=== PATIENT | male | born 1940 | race Caucasian/White ===

== ENCOUNTER 2016-06-10 11:48 | Emergency (ER) | payer MEDICARE, BC ==
[2016-06-10] MEDS ORDERED: IOPAMIDOL 300 (61%) 100 ML VIAL IV ONE (11:49)
[2016-06-10 12:26] LABS: ABSOLUTE NEUTROPHIL COUNT 8.4 K/mm3 (1.8-7.7); BASO % 0.2 % (0.2-1.0); EOS % 0.1 % (0.9-2.9); HEMATOCRIT 29.3 % (32.0-52.0); HEMOGLOBIN 8.7 gm/l (14.0-18.0); IMM NEUT # 0.1 K/mm3 (0-0.2); IMM NEUT% 0.5 % (0-1); LYMPH # 0.5 (1.0-4.8); LYMPH % 5.1 % (15-45); MEAN CELL VOLUME 76.7 fl (80.0-94.0); MEAN CORPUSCULAR HEMOGLOBIN 22.8 pg (27.0-31.0); MEAN CORPUSCULAR HGB CONC 29.7 g/dl (33.0-37.0); MONO # 0.8 (0.0-0.8); MONO % 8.4 % (4-12); NEUT % 85.7 % (43-75); PLATELET COUNT 363 K/mm3 (130-400); RED CELL DISTRIBUTION WIDTH 16.9 % (11.5-14.5)
[2016-06-10 12:37] LABS: ALB/GLOB RATIO 1.3 (>1.0); ALBUMIN 3.6 gm/dL (3.5-5.7); CALCIUM 8.7 mg/dL (8.6-10.3)
[2016-06-10 12:38] LABS: URINE BILIRUBIN NEGATIVE (NEGATIVE); URINE BLOOD NEGATIVE (NEGATIVE); URINE GLUCOSE (UA) 3+ (NEGATIVE); URINE LEUKOCYTE ESTERASE NEGATIVE (NEGATIVE); URINE NITRITE NEGATIVE (NEGATIVE); URINE PROTEIN NEGATIVE (NEGATIVE); URINE UROBILINOGEN NORMAL (0-1 mg/dl)
[2016-06-10 12:40] LABS: URINE APPEARANCE CLEAR; URINE COLOR YELLOW
--- NOTE | 2016-06-10 13:49 | CT ---
CT ABDOMEN AND PELVIS WITH CONTRAST HISTORY: Right lower quadrant pain and groin pain. TECHNIQUE: Following intravenous administration of 100 mL of Isovue-300, contiguous axial images were acquired from the lung bases to the ischial tuberosities. Oral contrast was not administered. COMPARISON:None. FINDINGS: LUNG BASES: No gross airspace consolidation. Minor bronchial wall thickening. STOMACH: Moderate hiatal hernia. LIVER: No focal lesion. SPLEEN: No focal lesion. PANCREAS: No focal lesion. ADRENAL GLANDS: No mass effect. KIDNEYS: 3.2 cm right renal cyst. No collecting system dilatation. GALLBLADDER: Present. BOWEL: Moderately extensive fecal loading with partial decompression of the colon limiting evaluation. Proximal sigmoid colonic diverticulosis without diverticulitis. No gross small bowel dilatation minor wall thickening of the descending colon. APPENDIX: Not seen. PELVIC ORGANS: Evidence of penile implant placement. INGUINAL REGIONS: Abnormal soft tissue stranding at right-sided inguinal region with soft tissue attenuation focus measuring 6.1 x 4.6 cm in axial dimensions with adjacent small calcification, seen in association with right-sided adductor musculature. A small calcification is noted. FREE FLUID: No gross free fluid identified. ANTERIOR ABDOMINAL WALL: Prominent fatty hernia without edema or bowel content. ABDOMINOPELVIC LYMPH NODES: Pelvic lymph nodes including 3.3 cm left external iliac node and a 2.6 cm right external iliac node. ABDOMINAL AORTA: Normal caliber. OSSEOUS STRUCTURES: Evidence of prior left hip arthroplasty. Nonacute compression deformity of L1 with osseous bridging of the lower thoracic spine and across the L2-3 segment. Osseous bridging across the right sacroiliac joint. Findings of lumbar spondylosis with canal stenosis at the L4-5 level. IMPRESSION: 1. 6.1 x 4.6 in meters soft tissue attenuation focus in association with right-sided abductor musculature, intramuscular hematoma and mass lesion are possible. Adjacent soft tissue stranding may reflect changes of ecchymosis, edema, or cellulitis. A rim-enhancing fluid collection is not seen in this region. Presumed minor reactive pelvic adenopathy. 2. Prominent fatty umbilical hernia without bowel content or features of incarceration. 3. Minor wall thickening of the proximal colon which may be exaggerated by decompression, mild colitic change is possible. The appendix is not seen. 4. Status post penile pump placement and left-sided hip arthroplasty. 5. Findings of thoracolumbar spine spondylosis with multilevel osseous bridging. High-grade canal stenosis at L4-5. 6. Additional findings including 3.2 cm right renal cyst, moderate hiatal hernia, and lower lobe bronchial wall thickening. Findings discussed with Dr. Dent of the Emergency Medicine clinical service on 06/02/2016 at 1346 hours.
[2016-06-10] MEDS ORDERED: INSULIN REGULAR HUMAN (DOSE) 100 UNITS/1 ML ONE ×3 (17:32→19:48)
[2016-06-10 18:01] LABS: INR 3.05; PROTHROMBIN TIME 33.9 SECONDS (9.3-11.4)
== END 2016-06-10 21:13 | disposition home or self-care (01) ==
LOC: ED 11:48
DX: E11.65 Type 2 diabetes mellitus with hyperglycemia (principal); S30.1XXA Contusion of abdominal wall, initial encounter; I10 Essential (primary) hypertension; E66.9 Obesity, unspecified; G47.30 Sleep apnea, unspecified; I48.91 Unspecified atrial fibrillation; I25.10 Atherosclerotic heart disease of native coronary artery without angina pectoris; Z85.038 Personal history of other malignant neoplasm of large intestine; Z79.84 Long term (current) use of oral hypoglycemic drugs; Z79.4 Long term (current) use of insulin; Z79.899 Other long term (current) drug therapy; X58.XXXA Exposure to other specified factors, initial encounter
CPT/HCPCS: 85025; 80053; 85610; 81003; 74177; 97001; 99284 ×2; 96372 ×2; 82962 ×2; Q9967; J1815 ×3; G8978; G8979; G8980

== ENCOUNTER 2016-06-12 12:38 | Observation (INO) | payer MEDICARE, BC ==
[2016-06-12 13:46] LABS: ABSOLUTE NEUTROPHIL COUNT 8.4 K/mm3 (1.8-7.7); BASO % 0.2 % (0.2-1.0); EOS % 0.3 % (0.9-2.9); HEMATOCRIT 26.4 % (32.0-52.0); HEMOGLOBIN 7.9 gm/l (14.0-18.0); IMM NEUT # 0.1 K/mm3 (0-0.2); IMM NEUT% 0.6 % (0-1); LYMPH # 0.6 (1.0-4.8); LYMPH % 6.2 % (15-45); MEAN CELL VOLUME 76.1 fl (80.0-94.0); MEAN CORPUSCULAR HEMOGLOBIN 22.8 pg (27.0-31.0); MEAN CORPUSCULAR HGB CONC 29.9 g/dl (33.0-37.0); MEAN PLATELET VOLUME 9.6 fl (7.4-10.4); MONO # 0.6 (0.0-0.8); MONO % 6.3 % (4-12); NEUT % 86.4 % (43-75); PLATELET COUNT 364 K/mm3 (130-400); RED CELL DISTRIBUTION WIDTH 17.1 % (11.5-14.5)
[2016-06-12 14:00] LABS: INR 2.87; PROTHROMBIN TIME 31.8 SECONDS (9.3-11.4)
[2016-06-12] MEDS ORDERED: MAGNESIUM HYDROXIDE 30 ML UDCUP PO PRN (16:24)
[2016-06-12] MEDS ORDERED: BISACODYL 5 MG TABLET.EC PO PRN (16:24)
[2016-06-12] MEDS ORDERED: BISACODYL 10 MG SUP PR PRN (16:24)
[2016-06-12] MEDS ORDERED: SODIUM CHLORIDE 0.9% 100 ML IV PRN (16:24)
[2016-06-12] MEDS ORDERED: MENTHOL/CETYLPYRD 1 EACH LOZENGE PO PRN (16:24)
[2016-06-12] MEDS ORDERED: BLISTEX LIPSTICK 1 EACH TP PRN (16:24)
[2016-06-12] MEDS ORDERED: ACETAMINOPHEN 325 MG TABLET PO PRN (16:24)
[2016-06-12 17:05] VITALS: BMI 48.3
[2016-06-12] MEDS: INSULIN ASPART (DOSE) 100 UNITS/1 ML SUB-Q PRN ×2 (18:22→21:33)
[2016-06-12] MEDS ORDERED: WARFARIN SODIUM 5 MG TABLET PO SCH ×3 (18:30→19:15)
--- NOTE | 2016-06-12 19:41 | HP ---
FRANCA GOLD [id number] DATE OF ADMISSION: June 12, 2016 CHIEF COMPLAINT: Right inguinal pain. HISTORY OF PRESENT ILLNESS: The patient is a 75-year-old male who was brought to the [facility] Emergency Department because of worsening right medial leg pain and increased weakness. Patient initially was seen on June 10, 2016 for hyperglycemia. At that time he was noted to have some swelling and ecchymosis involving the right thigh. He had further evaluation including a CT of the abdomen and pelvis showing evidence of 6 x 5 cm soft tissue attenuation in the right sided abductor musculature consistent with an intramuscular hematoma. His hemoglobin at that time was 8.7. He was discharged home after control of his blood sugars was accomplished, but his has continued to struggle with managing his care at home. He requires one person assistance for all activities of daily living, and at times two person assistance, and she has back problems and has plans to undergo surgery in the near future and cannot handle his care needs. Arrangements had been made for him to intermediate care facility, but then they changed their mind and returned today with the goal of going back to intermediate care facility but a bed was not available until tomorrow. So they were referred to the hospitalist service for observation due to patient's generalized weakness and right groin pain. The patient's is frustrated and exasperated. She notes that he has had a gradual decline in the last several months. He has had recent fluctuations in his blood sugars. They were seen at [facility] for low blood sugar. He got lots of glucose to finally bring it back up and then the following day he had high blood sugar and was brought here. He has had worsening memory in the last three months to six months and even forgot to pay his bills. He has had problems with managing his medications, and she has recently assumed that as well as taking care of the bills. She is hoping to refit the house to make it handicap accessible and adjust it to allow him to stay at home, but it is unclear when they will be able to achieve that. They have hired contractors. She is assuming more direct care of the patient but feel she can no longer manage his needs and is hoping that he will improve with a stay in a nursing facility. REVIEW OF SYSTEMS: Is negative for any recent fevers or chills. He has had no upper respiratory symptoms, no cough, chest pain, shortness of breath. He has chronic dyspnea on exertion. He has chronic snoring and chronic orthopnea. He has had no change in lower extremity edema. He has had no abdominal pain, no nausea, vomiting, diarrhea, or constipation. No headaches, fainting, blackouts or seizures. He has had some polyuria with his hyperglycemia but currently this is improved. He has nocturia about three or four times a night. PAST MEDICAL HISTORY: Is significant for: 1. Adult onset diabetes on insulin for the past 30 years. 2. He has chronic essential hypertension. 3. He has a history of obstructive sleep apnea and was on CPAP therapy until a year and a half ago when he stopped using the machine, and he has refused to go in for a sleep study but now is starting to reevaluate his decision. 4. He has morbid obesity. 5. He has benign prostatic hypertrophy. 6. He has a history of gastroesophageal reflux disease with an esophageal stricture in the past. 7. He has had some chronic depression. 8. He has had some vitamin D deficiency. 9. He has chronic atrial fibrillation. 10. He was hospitalized last in August of 2014 for acute renal failure, respiratory failure and uncontrolled diabetes. He may have been on a ventilator for a while. PAST SURGICAL HISTORY: Significant for: 1. A left hip replacement in 2009. 2. Bilateral inguinal hernia repair in 1984. 3. Colonoscopy in 2009. 4. Tonsillectomy as a child. 5. Penile implant surgery, date unknown. ALLERGIES: NO KNOWN DRUG ALLERGIES. CURRENT MEDICATIONS: 1. Lantus insulin 45 units subcutaneous daily. 2. NovoLog insulin 3 units subcutaneous three times a day with meals. She also uses a correction scale of anywhere from 0 to 12 units three times a day with meals plus some bedtime insulin as needed. 3. He takes Coumadin 7.5 mg Sunday, Sunday, Sunday, Sunday, and Sunday and 5 mg orally on Sunday only. 4. Flomax 0.4 mg daily. 5. Paxil 20 mg daily. 6. Nexium 40 mg daily. 7. Metformin 1000 mg twice a day with meals. 8. Losartan 100 mg daily. 9. Proscar 5 mg daily. 10. Norvasc 5 mg daily. FAMILY HISTORY: Positive for diabetes in the family. SOCIAL HISTORY: He is in his second marriage. He has two biological children but they are not local. His current has a daughter from her previous marriage who is active and supportive. He is currently living with his . He used to drink regularly but is no longer drinking alcohol. Denies any history of tobacco use or illicit drug use. His primary care provider is Dorothy Heck nurse practitioner. There is no POLST form on file. PHYSICAL EXAMINATION: VITAL SIGNS: Temperature is 97.7, pulse 75, blood pressure 149/68, respirations 20, oxygen saturation 96% on room air. Body mass index is 48.4. Weight is 152.86 kilograms. GENERAL: This is an obese elderly male in no acute distress. HEENT: Shows pupils equal, round and reactive to light. Extraocular movements are intact. No oral lesions are present. NECK: Is supple without lymphadenopathy or thyromegaly. CHEST: Lungs are clear to auscultation bilaterally. CARDIOVASCULAR: Exam reveals an irregular rhythm, normal rate without a murmur. ABDOMEN: Is obese, soft, nontender, nondistended with positive bowel sounds. EXTREMITIES: Show some bruising and ecchymoses involving the right thigh especially over the medial aspect of the thigh. He has some tenderness up into the adductor canal. No definite mass is palpable. Dorsalis pedis pulses are 2+ in the feet bilaterally. No joint effusions and full range of motion at the hips and the knees. LABORATORY STUDIES: Included a CBC with a white count of 9.7, hemoglobin of 7.9, platelet count of 364,000. INR was 2.87, glucose was 282. His last chemistry profile was done on June 10, 2016 and this showed a sodium 128, potassium 4.8, BUN 10, creatinine 1.1, and normal liver function tests. ASSESSMENT: 1. Patient has a right groin strain with a right groin hematoma associated with anticoagulation therapy on Coumadin. 2. He has a history of adult onset diabetes with poor control. 3. He has morbid obesity which complicates his care. 4. He has a history of obstructive sleep apnea noncompliant with CPAP therapy. 5. He has a history of chronic microcytic anemia likely due to iron deficiency on top of acute blood loss anemia. 6. He has atrial fibrillation on chronic anticoagulant therapy on Coumadin. 7. He has some chronic gastroesophageal reflux disease which is stable. 8. He has chronic essential hypertension which is stable. PLAN: He meets criteria for observation and will be placed under observation. Family would like to pursue group home care. At this point he does not meet criteria for admission and will only meet criteria for Medicare's coverage for group home care. Family understands and will likely pursue intermediate care facility level of care. He is going to move to [facility] tomorrow. We will work to reduce his Coumadin dose slightly to achieve a lower INR and hopefully reduce his risk of further bleeding. We will check a hemoglobin in the morning to make sure that his blood counts are stable. I am going to start him on iron supplementation as well. cc: Rob Valdivia
[2016-06-12] MEDS: DOCUSATE SODIUM 100 MG CAPSULE PO SCH (21:09)
[2016-06-12] MEDS: FERROUS SULFATE (65 Fe) 325 MG TABLET PO SCH (21:09)
[2016-06-13 06:06] LABS: HEMATOCRIT 26.4 % (32.0-52.0); HEMOGLOBIN 7.4 gm/l (14.0-18.0)
[2016-06-13 06:09] LABS: INR 3.01; PROTHROMBIN TIME 33.5 SECONDS (9.3-11.4)
[2016-06-13 06:20] LABS: CALCIUM 8.6 mg/dL (8.6-10.3)
[2016-06-13] MEDS ORDERED: METFORMIN HCL 1,000 MG TABLET PO SCH (07:00)
[2016-06-13] MEDS: INSULIN ASPART (DOSE) 100 UNITS/1 ML SUB-Q PRN ×2 (08:07→13:27)
[2016-06-13] MEDS: INSULIN ASPART (DOSE) 100 UNITS/1 ML SUB-Q SCH ×2 (08:07→13:26)
[2016-06-13] MEDS ORDERED: FINASTERIDE 5 MG TABLET PO SCH (09:00)
[2016-06-13] MEDS ORDERED: PAROXETINE 20 MG TABLET PO SCH (09:00)
[2016-06-13] MEDS ORDERED: PANTOPRAZOLE 40 MG TABLET DR PO SCH (09:00)
[2016-06-13] MEDS ORDERED: LOSARTAN POTASSIUM 50 MG TABLET PO SCH (09:00)
[2016-06-13] MEDS ORDERED: INSULIN GLARGINE (DOSE) 100 UNITS/ML UNIT SUB-Q SCH (09:00)
[2016-06-13] MEDS ORDERED: AMLODIPINE BESYLATE 5 MG TABLET PO SCH (09:00)
[2016-06-13] MEDS ORDERED: TAMSULOSIN HCL 0.4 MG CAPSULE.DR PO SCH (09:00)
[2016-06-13] MEDS: DOCUSATE SODIUM 100 MG CAPSULE PO SCH (09:54)
[2016-06-13] MEDS: FERROUS SULFATE (65 Fe) 325 MG TABLET PO SCH (09:54)
--- NOTE | 2016-06-13 10:56 | PDOC43 ---
- Subjective Chief Complaint: weakness, right leg pain Subjective: Reports Pain Tolerable, Reports Tolerating Diet Well, Denies Fever - Objective Vital Signs Temperature 98.6 F 06/13/16 08:00 Pulse Rate 80 06/13/16 08:00 Respiratory Rate 16 06/13/16 08:00 Blood Pressure 150/83 06/13/16 08:00 O2 Saturation by Pulse Oximetry 97 06/13/16 08:00 Oxygen Delivery Method Room Air Oxygen Flow Rate 0 Intake and Output 06/12/16 06/13/16 06/14/16 06:59 06:59 06:59 Intake Total 746 Output Total 300 Balance 446 General: Alert, Cooperative, No Acute Distress HEENT: Mucous membr. moist/pink Lungs: Clear to Auscultation Bilaterally Cardiovascular: Regular Rate and Rhythm Abdomen: Soft, Normal Bowel Sounds, Non-Distended, No Tenderness Extremities: Other (right thigh bruising and ecchymoses are stable), No Edema Laboratory 06/13/16 05:15 06/13/16 05:15 06/13/16 06/13/16 06/12/16 07:56 05:15 21:12 PT 33.5 H POC Capillary Glucose 195 H 292 H 06/12/16 15:57 PT POC Capillary Glucose 282 H Current Medications: Current meds reviewed in EMR. - Problems: Assessment/Plan (1) Hematoma Status: Acute Assessment/Plan: of right thigh, subacute, likely due to muscle tear while anticoagulated, appears stable (2) Acute blood loss anemia Status: Acute Assessment/Plan: due to hematoma and chronic iron def-start iron and follow (3) Diabetes Qualifiers: Diabetes mellitus type: type 2 Diabetes mellitus complication status: without complication Diabetes mellitus long term acute care registered nurse insulin use: with long term acute care registered nurse use Qualifier Code: (E11.9) Type 2 diabetes mellitus without complications Status: Acute Assessment/Plan: cont current Rx (4) Morbid obesity Qualifiers: Obesity type: with alveolar hypoventilation Qualifier Code: (E66.2) Morbid (severe) obesity with alveolar hypoventilation Status: Acute Assessment/Plan: requested sleep study referral from PCP [facility] Prophylaxis: on Coumadin Disposition: to [facility] today
[2016-06-13] MEDS ORDERED: IRON SUCROSE COMPLEX IV ONE (12:00)
[2016-06-13] MEDS ORDERED: SODIUM CHLORIDE 0.9% IV ONE (12:00)
[2016-06-13] MEDS ORDERED: PUMP TUBING ONE (12:37)
[2016-06-13 13:16] VITALS: BP 130/82
--- NOTE | 2016-06-13 13:19 | CT ---
Exam: CT head without contrast COMPARISON: None INDICATION: Fall with head trauma, INR 3.0. TECHNIQUE: CT examination of the head was obtained without contrast. FINDINGS: There is no acute intracranial hemorrhage. There is no abnormal intra or extra-axial fluid collection. Cortical ruiz-white matter differentiation is maintained and there is no mass effect or midline shift. Ventricles are normal in size. There are moderate periventricular and deep white matter hypodensities, compatible with chronic small vessel ischemic changes. There is mild to moderate global atrophy. There is no depressed skull fracture. Visualized paranasal sinuses and mastoid air cells are well aerated. IMPRESSION: No acute intracranial abnormality. Report called to Dr. Tapia 1315 hours 06/13/2016.
[2016-06-13] MEDS ORDERED: WARFARIN SODIUM 5 MG TABLET PO SCH (16:00)
== END 2016-06-13 15:00 ==
LOC: ED 12:38 → MS 14:49
PROVIDERS: ADMIT Family Medicine; ATTEND Family Medicine
DX: S70.11XA Contusion of right thigh, initial encounter (principal); E11.9 Type 2 diabetes mellitus without complications; I10 Essential (primary) hypertension; G47.33 Obstructive sleep apnea (adult) (pediatric); E66.01 Morbid (severe) obesity due to excess calories; N40.0 Benign prostatic hyperplasia without lower urinary tract symptoms; K21.9 Gastro-esophageal reflux disease without esophagitis; F32.9 Major depressive disorder, single episode, unspecified; E55.9 Vitamin D deficiency, unspecified; I48.2 Chronic atrial fibrillation